=== PATIENT | female | born 1995 | race Caucasian/White ===

== ENCOUNTER 2018-06-02 07:50 | Emergency (ER) | payer OTHER ==
[~2018-06-02] VITALS: Ht 162.6 cm; Wt 50.0 kg
[2018-06-02] MEDS ORDERED: IBUPROFEN 800 MG TAB PO ONE (08:00)
[2018-06-02 08:06] VITALS: BP 120/80; PULSE 120; RESP 16; Ht 162.6 cm; Wt 50.0 kg
[2018-06-02] MEDS ORDERED: IBUP-1542 PO (08:20)
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
== END 2018-06-02 14:15 | disposition home or self-care (01) ==
LOC: EEVIPCON 07:50 → E/R 07:50
DX: H11.32 Conjunctival hemorrhage, left eye (principal); S00.81XA Abrasion of other part of head, initial encounter; F17.210 Nicotine dependence, cigarettes, uncomplicated; S40.022A Contusion of left upper arm, initial encounter; S40.021A Contusion of right upper arm, initial encounter; Y04.8XXA Assault by other bodily force, initial encounter
CPT/HCPCS: 70450; 70486